=== PATIENT | male | born 1985 | race Hispanic/Latino ===

== ENCOUNTER 2018-07-28 19:29 | Emergency (ER) | payer OTHER ==
[2018-07-28] MEDS ORDERED: ACETAMINOPHEN EXTRA STRENGTH 500 MG TABLET ONE (19:45)
[2018-07-28 20:20] LABS: RAPID GROUP A STREP POSITIVE (NEGATIVE)
[2018-07-28] MEDS ORDERED: LIDOCAINE HCL-MPF 1% 2ML VIAL ONE (20:29)
[2018-07-28] MEDS ORDERED: CEFTRIAXONE SODIUM 1 GM ONE (20:30)
== END 2018-07-28 19:44 | disposition home or self-care (01) ==
LOC: EDH 19:29
DX: J02.0 Streptococcal pharyngitis (principal)
CPT/HCPCS: 87804 ×2; 87880; 96372; 99283; J0696; J3490